=== PATIENT | male | born 1985 | race Caucasian/White ===

== ENCOUNTER 2018-01-23 14:35 | Emergency (ER) ==
[2018-01-23 14:40] VITALS: BP 159/106; TEMP 97.4; BMI 32.8
--- NOTE | 2018-01-23 15:05 | ED.PDOC ---
General ED Provider: Dr. ZI LANCE Chief Complaint: Thrush Stated Complaint: trush Time Seen by Physician: 15:00 Mode of Arrival: Walk-In Information Source: Patient Exam Limitations: No limitations Nursing and Triage Documentation Reviewed and Agree: Yes Reviewed sepsis parameters & appropriate labs ordered?: Yes System Inflammatory Response Syndrome: Not Applicable Sepsis Protocol: For patient's 13 years and over: Temp is 96.8 and below OR 101 and greater Pulse >90 BPM Resp >20/minute Acutely Altered Mental Status Are patient's symptoms suggestive of a new infection, such as: -Pneumonia -Skin, Soft Tissue -Endocarditis -UTI -Bone, Joint Infection -Implantable Device -Acute Abdominal Infection -Wound Infection -Meningitis -Blood Stream Catheter Infection -Unknown System Inflammatory Response Syndrome: Not Applicable EENT Complaint Exam - Throat Complaint/Exam Symptoms Are: Still present Timimg: Constant Initial Severity: Mild Current Severity: None Aggravating: Reports: None Alleviating: Reports: None Associated Signs and Symptoms: Denies: Fever, Dysphagia, Drooling, Foreign body sensation, Chills, Cough, Wheezing, Hoarseness, Sinus discomfort, Nasal congestion, Difficulty breathing, Lethargy, Irritability, Decreased activity, Vomiting, Diarrhea, Decreased hearing, Ear drainage Uvula Midline: Yes Fatou-tonsillar Fluctuence: No Scarlatinaform Rash Present: No Stridor Present: No Sinus Tenderness Present: No Tonsillar Hypertrophy Present: No Tonsillar Exudate Present: No Fatou-tonsillar Swelling Present: No Adenopathy Present: No Splenomegaly Present: No Review of Systems - Review Of Systems Constitutional: Reports: No symptoms Eyes: Reports: No symptoms Ears, Nose, Mouth, Throat: Reports: No symptoms Respiratory: Reports: No symptoms Cardiac: Reports: No symptoms GI: Reports: No symptoms : Reports: No symptoms Musculoskeletal: Reports: No symptoms Skin: Reports: No symptoms Neurological: Reports: No symptoms Endocrine: Reports: No symptoms Hematologic/Lymphatic: Reports: No symptoms All Other Systems: Reviewed and Negative Past Medical History - Past Medical History Previously Healthy: Yes Endocrine: Reports: None Cardiovascular: Reports: None Respiratory: Reports: None Hematological: Reports: None Gastrointestinal: Reports: None Genitourinary: Reports: None Neuro/Psych: Reports: None Musculoskeletal: Reports: None Cancer: Reports: None - Surgical History General Surgical History: Reports: None - Family History Family History: Reports: Other (AUNT WITH EMPHYSEMA) - Social History Smoking Status: Current every day smoker Hx Substance Use: No Alcohol Screening: None Physical Exam - Physical Exam Appearance: Well-appearing, No pain distress, Well-nourished Eyes: TANYA, EOMI, Conjunctiva clear ENT: Ears normal, Nose normal (thrush) Respiratory: Airway patent, Breath sounds clear, Breath sounds equal, Respirations nonlabored Cardiovascular: RRR, Pulses normal, No rub, No murmur GI/: Soft, Nontender, No masses, Bowel sounds normal, No Organomegaly Musculoskeletal: Normal strength, ROM intact, No edema, No calf tenderness Skin: Warm, Dry, Normal color Neurological: Sensation intact, Motor intact, Reflexes intact, Cranial nerves intact, Alert, Oriented Psychiatric: Affect appropriate, Mood appropriate Critical Care Note - Critical Care Note Total Time (mins): 0 Course - Course Orders, Labs, Meds: Orders Category Date Time Status HIV 1/O/2 ANTIBODIES Stat LAB 01/23/18 15:02 Ordered Vital Signs: Temp Pulse Resp BP Pulse Ox 01/23/18 14:36 97.4 F L 114 H 20 159/106 H 97 Departure - Departure Time of Disposition: 15:04 Disposition: HOME SELF-CARE Discharge Problem: Oral candidosis, Candidiasis of mouth Instructions: Oral Candidiasis (ED) Condition: Good Pt referred to PMD for follow-up: Yes IPMP verified?: No Additional Instructions: Please call your Family Physician as soon as possible to schedule a follow-up appointment. Allergies/Adverse Reactions: Allergies Penicillins Adverse Reaction (Verified 01/23/18 14:40) Home Medications: Ambulatory Orders 1 [No Reported Medications] 10/24/15
== END 2018-01-23 15:26 | disposition home or self-care (01) ==
LOC: ED 14:35
DX: B37.0 Candidal stomatitis (principal); F17.210 Nicotine dependence, cigarettes, uncomplicated
CPT/HCPCS: 36415; 86701; 99282

== ENCOUNTER 2018-01-27 10:49 | Outpatient (CLI) | END 2018-01-27 10:50 | disposition short-term general hospital (02) | LOC: AMBL 10:49 | PROVIDERS: ATTEND Internal Medicine Geriatric Medicine | DX: R11.2 Nausea with vomiting, unspecified (principal) ==

== ENCOUNTER 2018-02-01 15:33 | Outpatient (CLI) | END 2018-02-01 15:34 | disposition home or self-care (01) | LOC: RHC-LAB 15:33 | PROVIDERS: ATTEND Emergency Medicine | DX: E11.69 Type 2 diabetes mellitus with other specified complication (principal); E66.9 Obesity, unspecified | CPT/HCPCS: 36415; 83525; 84681 ==

== ENCOUNTER 2018-02-02 17:59 | Emergency (ER) ==
[2018-02-02 18:04] VITALS: BP 145/86; TEMP 97.5; BMI 35.5
[2018-02-02] MEDS ORDERED: HUMULIN R SUBCUT STA (19:24)
--- NOTE | 2018-02-02 19:37 | ED.PDOC ---
General ED Provider: Dr. JOSAFAT ATKINSON Chief Complaint: Diabetes Stated Complaint: Patient is newly diagnosed DM,, trying to watch Carbohydrates to 60 per day. But sugars are elevated above 350. \ Time Seen by Physician: 19:35 Mode of Arrival: Walk-In Information Source: Patient Primary Care Provider: JOSAFAT [facility] Nursing and Triage Documentation Reviewed and Agree: Yes Reviewed sepsis parameters & appropriate labs ordered?: No System Inflammatory Response Syndrome: Not Applicable Sepsis Protocol: For patient's 13 years and over: Temp is 96.8 and below OR 101 and greater Pulse >90 BPM Resp >20/minute Acutely Altered Mental Status Are patient's symptoms suggestive of a new infection, such as: -Pneumonia -Skin, Soft Tissue -Endocarditis -UTI -Bone, Joint Infection -Implantable Device -Acute Abdominal Infection -Wound Infection -Meningitis -Blood Stream Catheter Infection -Unknown Endocrine Complaint Exam - Diabetic Complication Complaint/Exam Symptoms Are: Still present Timing: Constant Initial Severity: Moderate Current Severity: Moderate Character: Alert Aggravating: Reports: Diet change Alleviating: Reports: None Associated Signs and Symptoms: Denies: Decreased LOC, Polydipsia, Polyuria, Polyphagia, Weight loss, Abdominal pain, Nausea, Vomiting, Fever, Diaphoresis, Fruity breath Cardiac Risk Factors: Reports: None CVA Risk Factors: Reports: None Serious Bacterial Infection Risk Factors: Reports: None Related Surgical History: Reports: None Acetone on Breath: No Dry Mucous Membranes: No Kussmaul Respirations: No Meningeal Signs: No Focal Weakness: None Focal Sensory Loss: None Gait: Normal Nystagmus Present: No Gag Reflex Present: No Finger to Nose: Normal Romberg Test Positive: No Babinski Sign: Negative Right, Negative Left Differential Diagnoses: Hyperglycemia Review of Systems - Review Of Systems Constitutional: Reports: No symptoms Eyes: Reports: No symptoms Ears, Nose, Mouth, Throat: Reports: No symptoms Respiratory: Reports: No symptoms Cardiac: Reports: No symptoms GI: Reports: No symptoms : Reports: No symptoms Musculoskeletal: Reports: No symptoms Skin: Reports: No symptoms Neurological: Reports: No symptoms Endocrine: Reports: No symptoms Hematologic/Lymphatic: Reports: No symptoms All Other Systems: Reviewed and Negative Past Medical History - Past Medical History Previously Healthy: Yes Endocrine: Reports: DM 2 Cardiovascular: Reports: None Respiratory: Reports: None Hematological: Reports: None Gastrointestinal: Reports: None Genitourinary: Reports: None Neuro/Psych: Reports: None Musculoskeletal: Reports: None Cancer: Reports: None - Surgical History General Surgical History: Reports: None - Family History Family History: Reports: Other (AUNT WITH EMPHYSEMA) - Social History Smoking Status: Current every day smoker Hx Substance Use: No Alcohol Screening: None Physical Exam - Physical Exam Appearance: Well-appearing, No pain distress, Well-nourished Eyes: TANYA, EOMI, Conjunctiva clear ENT: Ears normal, Nose normal, Oropharynx normal Respiratory: Airway patent, Breath sounds clear, Breath sounds equal, Respirations nonlabored Cardiovascular: RRR, Pulses normal, No rub, No murmur GI/: Soft, Nontender, No masses, Bowel sounds normal, No Organomegaly Musculoskeletal: Normal strength, ROM intact, No edema, No calf tenderness Skin: Warm, Dry, Normal color Neurological: Sensation intact, Motor intact, Reflexes intact, Cranial nerves intact, Alert, Oriented Psychiatric: Affect appropriate, Mood appropriate Critical Care Note - Critical Care Note Total Time (mins): 25 Course - Course Orders, Labs, Meds: Orders Category Date Time Status BLOOD GLUCOSE MONITORING Q1HR CARE 02/02/18 19:25 Active Insulin Regular, Human [Humulin R] MEDS 02/02/18 19:24 Discontinued 8 unit SUBCUT ONCE STA Medications Discontinued Medications Generic Name Dose Route Start Last Admin Trade Name Daniel PRN Reason Stop Dose Admin Insulin Human Regular 8 unit 02/02/18 19:24 Humulin R SUBCUT 02/02/18 19:25 ONCE STA Vital Signs: Temp Pulse Resp BP Pulse Ox 02/02/18 17:59 97.5 F L 114 H 20 145/86 H 96 Departure - Departure Time of Disposition: 19:39 Disposition: HOME SELF-CARE Discharge Problem: Hyperglycemia Instructions: How to Check Your Blood Sugar (ED) Condition: Stable Pt referred to PMD for follow-up: Yes IPMP verified?: No Additional Instructions: Keep checking the blood sugars If more than 350 call MD office Increase Insulin NPH 70/30 to 20 units bid Allergies/Adverse Reactions: Allergies Penicillins Adverse Reaction (Verified 02/02/18 18:04) Home Medications: Ambulatory Orders Lisinopril 10 mg PO DAILY 02/01/18 Disposition Discussed With: Patient, Family
== END 2018-02-02 21:16 | disposition home or self-care (01) ==
LOC: ED 17:59
DX: E11.65 Type 2 diabetes mellitus with hyperglycemia (principal); F17.210 Nicotine dependence, cigarettes, uncomplicated
CPT/HCPCS: 96372; 99282

== ENCOUNTER 2018-04-06 19:35 | Outpatient (CLI) ==
[2018-04-06 20:01] VITALS: BMI 35.3
== END 2018-04-06 19:40 | disposition short-term general hospital (02) ==
LOC: AMBL 19:35
PROVIDERS: ATTEND Internal Medicine Geriatric Medicine
DX: R53.1 Weakness (principal); R42 Dizziness and giddiness; E11.9 Type 2 diabetes mellitus without complications

== ENCOUNTER 2018-04-06 19:46 | Emergency (ER) ==
[2018-04-06 20:01] VITALS: BP 135/100; TEMP 97.2; BMI 35.3
[2018-04-06] MEDS ORDERED: LACTATED RINGERS 1,000 ML IV STA (20:19)
--- NOTE | 2018-04-06 20:23 | ED.PDOC ---
General ED Provider: Dr. KENNEDI PATTERSON Chief Complaint: Weakness Stated Complaint: Patient is a 33 year old who comes to the ER with lower abdominal pain. Time Seen by Physician: 20:23 Mode of Arrival: Ambulance Information Source: Patient, EMT Exam Limitations: No limitations [facility] Nursing and Triage Documentation Reviewed and Agree: Yes Reviewed sepsis parameters & appropriate labs ordered?: No System Inflammatory Response Syndrome: Pulse >90 BPM Sepsis Protocol: For patient's 13 years and over: Temp is 96.8 and below OR 101 and greater Pulse >90 BPM Resp >20/minute Acutely Altered Mental Status Are patient's symptoms suggestive of a new infection, such as: -Pneumonia -Skin, Soft Tissue -Endocarditis -UTI -Bone, Joint Infection -Implantable Device -Acute Abdominal Infection -Wound Infection -Meningitis -Blood Stream Catheter Infection -Unknown System Inflammatory Response Syndrome: Not Applicable GI Complaint Exam - Abdominal Pain Complaint/Exam Onset: Gradual Duration: 2 hours Symptoms Are: Still present Timing: Constant Initial Severity: Severe Current Severity: Moderate Location of Pain: LLQ Radiates To: Denies: Chest, Back, Flank, LLQ, RLQ, Inguinal Character: Reports: Aching, Throbbing Aggravating: Reports: Movement, Food Alleviating: Reports: None Associated Signs and Symptoms: Denies: Diaphoresis, Fever, Cough, Chest pain, Dizziness, Back pain, Constipation, Blood in stool, Dysuria, Urinary frequency, Decreased urine output, Decreased appetite, Discharge, Nausea, Vomiting, Diarrhea, Decreased activity AAA Risk Factors: Reports: None Cardiac Risk Factors: Reports: None Testicular Torsion Risk Factors: Reports: None Surgical Obstruction Risk Factors: Reports: None Related Surgical History: Reports: None Abdominal Findings: Absent: Rebound tenderness, Peritoneal signs, McBurney's Point tender Differential Diagnoses: Bowel Obstruction, Constipation, Gastroenteritis, Pancreatitis Review of Systems - Review Of Systems Constitutional: Reports: No symptoms Eyes: Reports: No symptoms Ears, Nose, Mouth, Throat: Reports: No symptoms Respiratory: Reports: No symptoms Cardiac: Reports: No symptoms GI: Reports: Abdominal pain : Reports: No symptoms Musculoskeletal: Reports: No symptoms Skin: Reports: No symptoms Neurological: Reports: No symptoms Endocrine: Reports: No symptoms Hematologic/Lymphatic: Reports: No symptoms All Other Systems: Reviewed and Negative Past Medical History - Past Medical History Previously Healthy: Yes Endocrine: Reports: DM 2 Cardiovascular: Reports: None Respiratory: Reports: None Hematological: Reports: None Gastrointestinal: Reports: None Genitourinary: Reports: None Neuro/Psych: Reports: None Musculoskeletal: Reports: None Cancer: Reports: None - Surgical History General Surgical History: Reports: None - Family History Family History: Reports: Other (AUNT WITH EMPHYSEMA) - Social History Smoking Status: Current every day smoker, Light tobacco smoker Hx Substance Use: Yes (heavy alcohol in past) Alcohol Screening: Occasionally - Immunizations Tetanus Shot up to Date: Yes Physical Exam - Physical Exam Appearance: Ill-appearing Ill-appearing: Moderate Pain Distress: Moderate Neck: Supple Respiratory: Airway patent, Breath sounds clear, Breath sounds equal, Respirations nonlabored GI/: Soft, Tender (left lower abdomen. ) Psychiatric: Anxious Interpretation - Radiology Interpretation Radiology Interpretation By: Radiologist Radiology Results: Negative Exam Interpreted: CT Scan (Abdomen and Pelvis ) Critical Care Note - Critical Care Note Total Time (mins): 0 Course - Course Hematology/Chemistry: 04/06/18 20:30 04/06/18 20:30 Orders, Labs, Meds: Lab Review 04/06/18 04/06/18 04/06/18 20:30 20:30 20:41 WBC 11.35 H RBC 4.66 L Hgb 15.0 Hct 42.6 MCV 91.4 MCH 32.2 H MCHC 35.2 RDW Coeff of David 12.6 Plt Count 278 Immature Gran % (Auto) 0.5 Neut % (Auto) 57.9 Lymph % (Auto) 32.0 [place] % (Auto) 3.9 Eos % (Auto) 5.3 Baso % (Auto) 0.4 Immature Gran # (Auto) 0.1 Neut # (Auto) 6.6 Lymph # (Auto) 3.6 H [place] # (Auto) 0.4 Eos # (Auto) 0.6 Baso # (Auto) 0.1 Sodium 145 Potassium 3.9 Chloride 114 H Carbon Dioxide 16 L Anion Gap 18.9 BUN 18 Creatinine 0.80 Estimated GFR (MDRD) 113.00 BUN/Creatinine Ratio 22.50 Glucose 90 Calcium 10.0 Total Bilirubin 0.3 AST 25 ALT 60 Alkaline Phosphatase 72 Total Protein 7.1 Albumin 3.8 Globulin 3.3 Albumin/Globulin Ratio 1.15 Amylase 36 Lipase 48 Urine Color Yellow Urine Clarity Clear Urine pH 6.0 Ur Specific [place] <=1.005 Urine Protein Negative Urine Glucose (UA) Negative Urine Ketones Negative Urine Blood Trace-lysed Urine Nitrite Negative Urine Bilirubin Negative Urine Urobilinogen 0.2 Ur Leukocyte Esterase Trace Urine Microscopic RBC 0-2 Urine Microscopic WBC 0-2 Ur Squamous Epith Cells Not present Plasma/Serum Alcohol 283.8 H Orders Category Date Time Status AMYLASE Stat LAB 04/06/18 20:30 Completed CBC W/ AUTO DIFF Stat LAB 04/06/18 20:30 Completed COMPREHENSIVE METABOLIC PANEL Stat LAB 04/06/18 20:30 Completed ETOH LEVEL [BLOOD ALCOHOL] Stat LAB 04/06/18 20:30 Completed LIPASE Stat LAB 04/06/18 20:30 Completed URINALYSIS C & S IF INDICATED Stat LAB 04/06/18 20:41 Completed Ringers Lactated Solution [Lactated Ringers] 1,000 ml MEDS 04/06/18 20:[address] ABD/PEL WO RENAL STONE PROT Stat RADS 04/06/18 20:18 Completed Medications Discontinued Medications Generic Name Dose Route Start Last Admin Trade Name Daniel PRN Reason Stop Dose Admin Lactated Ringer's 1,000 mls @ 1,000 mls/hr 04/06/18 20:19 04/06/18 20:33 Lactated Ringers IV 04/06/18 21:18 1,000 mls/hr BOLUS STA Administration Vital Signs: Temp Pulse Resp BP Pulse Ox 04/06/18 19:49 97.2 F L 107 H 20 135/100 H 96 Departure - Departure Time of Disposition: 23:10 Disposition: AMA Discharge Problem: Abdominal pain of unknown cause Condition: Stable Pt referred to PMD for follow-up: No IPMP verified?: No Allergies/Adverse Reactions: Allergies Penicillins Adverse Reaction (Verified 04/06/18 20:07) Home Medications: Ambulatory Orders Hum Insulin NPH/Reg Insulin Hm [Humulin 70-30] 15 units SQ BID 04/06/18
--- NOTE | 2018-04-06 20:43 | CT ---
EXAM: CT abdomen pelvis without intravenous contrast 04/06/2018. Sagittal and coronal reformatted i mages obtained HISTORY: Lower abdominal pain COMPARISON: 12/05/2014 FINDINGS: The liver and gallbladder show no acute abnormality. The adrenal glands and kidneys show no acute abnormality. No urinary obstruction. The spleen and pancreas show no acute abnormality. There is no bowel obstruction. Normal appendix. Unremarkable urinary bladder. No free air or free fluid. No acute osseous abnormality. IMPRESSION: 1. No urinary or bowel obstruction and normal appendix. 2. No acute inflammatory process identified within the abdomen or pelvis within the limitation of a noncontrast enhanced examination.
== END 2018-04-06 21:21 | disposition left against medical advice (07) ==
LOC: ED 19:46
DX: R10.32 Left lower quadrant pain (principal); R53.1 Weakness; E11.9 Type 2 diabetes mellitus without complications; F17.210 Nicotine dependence, cigarettes, uncomplicated
CPT/HCPCS: 36415; 74176; 80053; 80307; 81001; 82150; 83690; 85025; 96360; 96361; 99283

== ENCOUNTER 2018-12-03 08:00 | Outpatient (CLI) ==
[2018-12-03 13:45] VITALS: BMI 38.2
== END 2018-12-03 08:06 | disposition critical access hospital (66) ==
LOC: AMBL 08:00
PROVIDERS: ATTEND Emergency Medicine
DX: R07.9 Chest pain, unspecified (principal); R06.02 Shortness of breath; I10 Essential (primary) hypertension; F41.9 Anxiety disorder, unspecified; R00.0 Tachycardia, unspecified; Z79.899 Other long term (current) drug therapy

== ENCOUNTER 2019-03-03 08:04 | Outpatient (CLI) | END 2019-03-03 08:05 | disposition home or self-care (01) | LOC: RHC-LAB 08:04 | PROVIDERS: ATTEND Nurse Practitioner Family | DX: E11.9 Type 2 diabetes mellitus without complications (principal); E78.1 Pure hyperglyceridemia | CPT/HCPCS: 36415; 80053; 80061; 83036 ==

== ENCOUNTER 2019-07-12 08:12 | Outpatient (CLI) | END 2019-07-12 08:13 | disposition home or self-care (01) | LOC: LAB 08:12 | PROVIDERS: ATTEND Nurse Practitioner Family | DX: E11.9 Type 2 diabetes mellitus without complications (principal); I10 Essential (primary) hypertension; E78.5 Hyperlipidemia, unspecified | CPT/HCPCS: 36415; 80053; 80061; 83036; 85025 ==